=== PATIENT | male | born 1970 | race Caucasian/White ===

== ENCOUNTER → 2024-05-25 09:25 | Outpatient (REF) | payer OTHER, SELFPAY | LOC: RAD 09:25 | PROVIDERS: ATTENDING PHYSICIAN Family Medicine | DX: R07.89 Other chest pain (principal) | CPT/HCPCS: 71260; 72072; Q9967 ==

== ENCOUNTER → 2024-07-19 07:58 | Outpatient (REF) | payer OTHER, SELFPAY | LOC: HWRCS 07:58 | PROVIDERS: ATTENDING PHYSICIAN Student in an Organized Health Care Education/Training Program; FAMILY PHYSICIAN Family Medicine | DX: R07.89 Other chest pain (principal) | CPT/HCPCS: 93306 ==

== ENCOUNTER → 2024-07-27 10:04 | Outpatient (REF) | payer OTHER, SELFPAY | LOC: RCS 10:04 | PROVIDERS: ATTENDING PHYSICIAN Student in an Organized Health Care Education/Training Program; FAMILY PHYSICIAN Family Medicine | DX: R07.89 Other chest pain (principal) | CPT/HCPCS: 93017 ==

== ENCOUNTER → 2024-11-09 14:33 | Outpatient (REF) | payer OTHER, SELFPAY | LOC: HWRAD 14:33 | PROVIDERS: ATTENDING PHYSICIAN Physician Assistant Medical | DX: R19.7 Diarrhea, unspecified (principal); K30 Functional dyspepsia | CPT/HCPCS: 76700 ==